=== PATIENT | male | born 1975 | race Caucasian/White ===

== ENCOUNTER 2018-05-13 11:03 | Emergency (ER) | payer OTHER ==
[2018-05-13] MEDS ORDERED: Tetan/Diph/Pertus SYR(Tdap)* 0.5 ML SYR(BOOSTRIX) use SYR IM ONE (11:11)
--- NOTE | 2018-05-13 11:40 | ED ---
Upper Extremity Pain - HPI Summary HPI Summary: Patient presents with laceration of left thumb prior to arrival. Reports he was cutting wood with a saw when he accidentally slipped and cut the dorsal aspect of his left thumb. Bleeding controlled with pressure. Denies numbness, tingling, weakness however has pain in this area. He is unsure of his last tetanus vaccine but is open to getting boosted today. Has not tried anything for pain prior to arrival nor does he want anything. - History of Current Complaint Chief Complaint: EDLacSutureRecheck Stated Complaint: LAC ON LEFT THUMB Time Seen by Provider: 05/13/18 11:08 Hx Obtained From: Patient - Allergies/Home Medications Allergies/Adverse Reactions: Allergies Allergy/AdvReac Type Severity Reaction Status Date / Time Penicillins Allergy Hives Verified 05/13/18 11:08 PMH/Surg Hx/FS Hx/Imm Hx Previously Healthy: Yes Endocrine/Hematology History: Denies: Hx Anticoagulant Therapy, Hx Blood Disorders, Autoimmune Disease - Immunization History Immunizations Up to Date: Unable to Obtain/Confirm Infectious Disease History: No Infectious Disease History: Denies: Traveled Outside the [place] in Last 30 Days - Social History Alcohol Use: None Substance Use Type: Reports: Marijuana Hx Tobacco Use: No Smoking Status (MU): Never Smoked Tobacco Review of Systems Positive: no symptoms reported Musculoskeletal: Other - thumb soreness Skin: Other - laceration Neurological: Negative Psychological: Normal All Other Systems Reviewed And Are Negative: Yes Physical Exam Triage Information Reviewed: Yes Vital Signs On Initial Exam: Initial Vitals Temp Pulse Resp BP Pulse Ox 97.3 F 92 18 130/87 98 05/13/18 11:06 05/13/18 11:06 05/13/18 11:06 05/13/18 11:06 05/13/18 11:06 Vital Signs Reviewed: Yes Appearance: Positive: Well-Appearing, No Pain Distress, Well-Nourished Skin: Positive: Warm, Skin Color Reflects Adequate Perfusion - linear laceration over Lt dorsal thumb - extensor tendon visible w/ superficial lac ( appears to be less than 50%) - no active bleeding but appears to have been bleeding Head/Face: Positive: Normal Head/Face Inspection Eyes: Positive: EOMI ENT: Positive: Hearing grossly normal Respiratory/Lung Sounds: Positive: Breath Sounds Present Cardiovascular: Positive: Pulses are Symmetrical in both Upper and Lower Extremities Musculoskeletal: Positive: Normal, Strength/ROM Intact Neurological: Positive: Normal, Sensory/Motor Intact, Alert, Oriented to Person Place, Time, CN Intact II-III Psychiatric: Positive: Normal Procedures - Laceration/Wound Repair 1 Location: upper extremity - Lt thumb, dorsal aspect Description: Linear Anesthesia: Local, Digital, 1.0%, Lido Length, Depth and Shape: 2cm x 3mm - superficial tendon laceration - otherwise clean Betadine Prep?: Yes Irrigated w/ Saline (ccs): 100 - sterile saline Laceration/Wound Explored: clean Closure: Single Layer Suture Type: Other - ethilon 5-0 Number of Sutures: 3 Layer Closure?: No Sterile Dressing Applied?: Yes - triple anbx ointment + gauze + coban - hemodyn stable - pt melita well Diagnostics - Vital Signs Vital Signs Temp Pulse Resp BP Pulse Ox 05/13/18 11:06 97.3 F 92 18 130/87 98 - Laboratory Lab Statement: Any lab studies that have been ordered have been reviewed, and results considered in the medical decision making process. Course/Dx - Course Course Of Treatment: H/o hives with PCN in the past - no anaphylaxis. XR: no fx , no dislocation, no FB - Diagnoses Provider Diagnoses: Laceration of left thumb with tendon involvement Discharge - Sign-Out/Discharge Documenting (check all that apply): Patient Departure - Discharge Plan Condition: Stable Disposition: HOME Prescriptions: Cephalexin CAP* [Keflex CAP*] 500 mg PO QID #40 cap Patient Education Materials: Care For Your Stitches (ED), Laceration (ED), Tendon Laceration (ED) Referrals: Karime Castro MD [Medical Doctor] - Additional Instructions: Keep Dressing clean and dry and in place for the next 48 hours. After that time you may remove dressing, gently wash wound with soap and water, rinse well and pat dry with clean cloth. Reapply triple antibiotic ointment and clean gauze dressing. Continue this daily until sutures are removed. Call hand specialist today to assess injury - she may remove sutures in 10 days. KEEP SPLINT IN PLACE UNTIL HEALED. Complete antibiotics as directed. For pain/swelling, rest, ice, elevate and take ibuprofen alternating with acetaminophen. * If you develop redness, swelling, streaking, purulent drainage, fevers or chills, seek medical attention sooner or return to the emergency department. - Billing Disposition and Condition Condition: STABLE Disposition: Home
[2018-05-13 14:08] VITALS: BP 127/88
== END 2018-05-13 14:10 | disposition home or self-care (01) ==
LOC: ED 11:03
DX: S61.012A Laceration without foreign body of left thumb without damage to nail, initial encounter (principal); S66.222A Laceration of extensor muscle, fascia and tendon of left thumb at wrist and hand level, initial encounter; W29.8XXA Contact with other powered hand tools and household machinery, initial encounter; Y92.9 Unspecified place or not applicable; Z23 Encounter for immunization; Z88.0 Allergy status to penicillin
CPT/HCPCS: 12001; 90471; 90715; 99282